=== PATIENT | female | born 1965 | race Caucasian/White ===

== ENCOUNTER 2021-12-30 19:37 | Observation (INO) ==
--- NOTE | 2021-12-30 20:20 | ED Triage Note ---
Date of Service December 30, 2021 History of Present Illness This patient was briefly evaluated while in triage. An abbreviated physical exam was performed. This patient is a 56-year-old Female who presents to the ED for evaluation of abdominal bloating and cramping. Patient recently diagnosed with a bulging disc in her back, was started on a muscle relaxer. She has been having abdominal bloating since December 06. She has tried laxatives and enemas. Physical Exam VITALS: Vitals are noted on the nurse's note and reviewed by myself. Vital signs stable. GENERAL: This is a 56-year-old female, in no acute distress, well-developed well-nourished. SKIN: The skin was without rashes. HEART: Regular rate and rhythm without murmurs gallops or rubs. LUNGS: Clear to auscultation bilaterally without wheezes, rales or rhonchi. ABDOMEN: Positive bowel sounds x 4. Soft, nontender to palpation. NEURO: Patient was alert and oriented to person place and time. Initial orders for labs and / or imaging were placed and patient was placed in the waiting area until a bed is available. Please see further documentation for the full ED course.
[2021-12-30 21:32] LABS: Appearance Urine Clear (Clear); Bacteria Urine Automated Negative (Negative); Bilirubin Urine Negative (Negative); Blood Urine Negative (Negative); Color Urine Yellow; Epithelial Cell Urine Auto >30 /lpf (0-5); Glucose Urine UA Negative (Negative); Ketones Urine Negative (Negative); Leukocyte Esterase Urine 1+ (Negative); Nitrite Urine Negative (Negative); Protein Urine Negative (Negative); RBC Urine Automated 0-4 /hpf (0-4); Specific Gravity Urine 1.019 (1.000-1.030); Urobilinogen Urine Negative (Negative)
[2021-12-30 21:34] LABS: Basophils # (auto) 0.05 K/uL (0-0.2); Basophils % (auto) 0.3 %; Eosinophils # (auto) 0.16 K/uL (0-0.50); Hematocrit (blood only) 41.2 % (34.1-44.9); Hemoglobin 13.8 g/dl (12.0-16.0); Immature Granulocytes % (auto) 1.3 %; Lymphocytes # (auto) 2.34 K/uL (1.2-3.4); Lymphocytes % (auto) 14.7 %; Mean Corpuscular Hemoglobin 30.7 pg (25.0-34.0); Mean Corpuscular Hgb Conc 33.5 g/dL (32.0-36.0); Mean Corpuscular Volume 91.8 fL (80.0-100.0); Mean Platelet Volume 10.6 fL (9.4-12.3); Monocytes # (auto) 0.67 K/uL (0.24-0.82); Monocytes % (auto) 4.2 %; Neutrophils # (auto) 12.53 K/uL (1.4-6.5); Neutrophils % (auto) 78.5 %; Platelet Count 368 K/uL (130-400); RDW Coefficient of Variation 13.9 % (11.5-14.5); RDW Standard Deviation 46.8 fL (36.4-46.3); Red Blood Count 4.49 M/uL (3.93-5.22); White Blood Count 15.95 K/ul (4.8-10.8)
[2021-12-30 21:55] LABS: Albumin Globulin Ratio 1.1 (0.9-2); Albumin Level 3.7 gm/dl (3.4-5.0); BUN Creatinine Ratio 23.8 (10-20); Bilirubin,Total 0.5 mg/dl (0.2-1.0); Calcium 8.8 mg/dl (8.5-10.1); Est GFR (African American) 89.4 ml/min; Est GFR (Non-African American) 77.2 ml/min; Globulin 3.3 gm/dl (2.5-4.0); Potassium 3.7 mmol/L (3.5-5.1)
[2021-12-31] MEDS ORDERED: fentaNYL citrate 100 MCG/2 ML VIAL IV PRN (00:30)
[2021-12-31] MEDS ORDERED: ACETAMINOPHEN 1,000 MG/100 ML VIAL IV STA (00:30)
--- NOTE | 2021-12-31 00:30 | Emergency Department Note ---
History of Present Illness General Chief complaint: Abdominal Pain Stated complaint: abd pain, back pain Time Seen by Provider: 12/31/21 00:09 Source: patient Mode of arrival: ambulatory Limitations: no limitations History of Present Illness Provider complaint: back pain, abdominal pain Onset (ago): week(s) 3 Maximum Pain Intensity: 10 This is a 56-year-old female presents emergency department due to concern for persistent back pain and now worsening abdominal pain. Patient states she began having back pain beginning of December. She underwent CT imaging which showed 2 bulging disc. She did have a follow-up MRI a week ago. She does not know the formal results. She has a scheduled appoint with Dr. Roberto but not for several more weeks. She states she has been using oxycodone at home in addition to a muscle relaxer, and steroids for inflammation. She states this is not helping her pain. She states now after taking all the pain medication she is very con stipated. She states she has not had a normal bowel movement in several weeks. She states she is passing very little amounts of gas. She states she does feel bloated and distended and has had intermittent nausea, no vomiting. She denies fevers or chills, saddle anesthesia, change in urine, pain or paresthesias into the lower extremities. did retrieve MRI disc from the car. THis was uploaded to PACS but we are awaiting copy of outside radiology report. Pt seen during a time of high acuity and national emergency pandemic while wearing PPE. Home Medications Medication Instructions Recorded Confirmed Type topiramate 50 mg tablet 50 mg PO BID 11/05/20 12/31/21 History lifitegrast 5 % eye drops in a 1 drp OPB BID 11/08/20 12/31/21 History dropperette (Xiidra) Vitamin D3 50 mcg PO DAILY 12/31/21 12/31/21 History cyclobenzaprine 10 mg tablet 10 mg PO HS PRN Spasms 12/31/21 12/31/21 History oxycodone-acetaminophen 5 mg-325 1 tab PO ONCE HS PRN pain 12/31/21 12/31/21 History mg tablet (Percocet) acetaminophen 325 mg tablet 650 mg PO Q8H PRN pain #90 tabs 01/01/22 Rx diclofenac sodium 1 % topical gel 4 g EXT QID #100 grams 01/01/22 Rx (Voltaren Arthritis Pain) polyethylene glycol 3350 17 gram 17 g PO DAILY PRN constipation #30 01/01/22 Rx oral powder packet (Miralax) ea sennosides 8.6 mg-docusate sodium 2 tab PO BID #120 tabs 01/01/22 Rx 50 mg tablet (Senokot-S) Allergies Allergy/AdvReac Type Severity Reaction Status Date / Time No Known Allergies Allergy Verified 12/19/21 00:47 Past Med/Surg History Medical History Migraine HX Surgical History H/O laparoscopy X 2 History of breast biopsy LEFT-BENIGN History of colonoscopy History of hysterectomy TOTAL Family History Grandmother (Maternal) Family history of diabetes mellitus Social History Smoking Status: Never smoker Second Hand Exposure: No; Do You Dip or Chew Tobacco: No; Tobacco Cessation Education Requested by Patient: No Hx Alcohol Use: Yes Alcohol type: beer Hx Substance Use: No Preferred Language: Danish Communication Ability: Effective Electrician Outside Required: No Beliefs That Will Affect Care: None Current Living Situation: Family current occupational status: employed current occupation: [employer] Other Information That Helps Us Care for You: No Feels Safe at Home: Yes Safety Concerns: Feels Safe At This Time Assistive Devices: Contacts and Glasses Review of Systems A total of 10 systems reviewed and were otherwise negative All systems reviewed & are unremarkable except as noted in HPI & below Physical Exam Vital Signs Vital Signs - 24 hr 12/30/21 20:13 12/31/21 01:22 12/31/21 01:22 Temperature 36.5 C Temperature Source Temporal Artery Scan Pulse Rate 114 H Pulse Rate [Apical] 93 H Pulse Rhythm [Apical] Regular Respiratory Rate 18 18 Respiratory Effort / Characteristics Non-Labored Respiratory Depth Normal Respiratory Pattern Regular Blood Pressure 140/83 Blood Pressure [Right Arm] 114/87 Blood Pressure Mean 102 Blood Pressure Mean [Right Arm] 96 Blood Pressure Position [Right Arm] Lying Pulse Oximetry 99 97 Oxygen Delivery Method Room Air Room Air Room Air Sepsis Recent Fever Within 48 Hours No Sepsis New/Unexplained Change in Mental Status N/A Sepsis Action Taken by Nursing No Action Required 12/31/21 02:19 12/31/21 02:19 12/31/21 04:39 Temperature Temperature Source Pulse Rate 93 H Pulse Rate [Apical] 86 Pulse Rhythm [Apical] Respiratory Rate 15 17 Respiratory Effort / Characteristics Non-Labored Spontaneous Respiratory Depth Normal Respiratory Pattern Blood Pressure 140/85 Blood Pressure [Right Arm] 153/86 H Blood Pressure Mean 103 Blood Pressure Mean [Right Arm] 108 Blood Pressure Position [Right Arm] Lying Pulse Oximetry 100 100 Oxygen Delivery Method Room Air Sepsis Recent Fever Within 48 Hours Sepsis New/Unexplained Change in Mental Status Sepsis Action Taken by Nursing GENERAL: alert, uncomfortable appearing, well nourished, moderate distress, non- toxic EYE EXAM: normal conjunctiva, PERRL and EOM's grossly intact OROPHARYNX: no exudate, no erythema, lips, buccal mucosa, and tongue normal and mucous membranes are moist NECK: supple, no nuchal rigidity, no adenopathy, non-tender LUNGS: Clear to auscultation. Normal chest wall mechanics, no w/r/r HEART: no murmurs, S1 normal and S2 normal ABDOMEN: abdomen soft, generalized discomfort with palpation, normo-active bowel sounds, no masses, no rebound or guarding. Dull to percussion. BACK: Back is symmetrical on inspection and there is no deformity, no midline tenderness, no CVA tenderness. Pain across lower lumbar spine b/l SKIN: no rashes and no bruising UPPER EXTREMITIES: upper extremities are grossly normal. FROM, nml pulses b/l. LOWER EXTREMITIES: No pitting edema. FROM, nml pulses b/l. NEURO EXAM: Normal sensorium, cranial nerves II-XII grossly intact, normal speech, no gross weakness of arms, no gross weakness of legs. Gross sensation intact. Course Administered Medications Discontinued Medications Acetaminophen (Acetaminophen 325 Mg Tab) 650 mg PO Q4H PRN PRN Reason: pain/fever Stop: 01/30/22 08:28 Last Admin: 12/31/21 18:56 Dose: 650 mg Documented By: CDV Diclofenac Sodium (Diclofenac Sod 1% Gel 100 Gm Tube) 4 gm EXT QID [facility]; Protocol Stop: 01/30/22 12:59 Last Admin: 01/01/22 13:04 Dose: Not Given Documented By: Admin: 01/01/22 09:15 Dose: 4 gm Documented By: Admin: 12/31/21 21:48 Dose: Not Given Documented By: Admin: 12/31/21 16:18 Dose: 4 gm Documented By: Admin: 12/31/21 12:36 Dose: Not Given Documented By: USHA Fentanyl Citrate (Fentanyl Citrate 100 Mcg/2 Ml Vial) 100 mcg IV Q15M PRN PRN Reason: Pain Stop: 01/14/22 00:29 Last Admin: 12/31/21 01:12 Dose: 100 mcg Documented By: SS Hydromorphone HCl (Hydromorphone Inj 1 Mg/Ml Syringe) 1 mg IV NOW STA Stop: 12/31/21 06:05 Last Admin: 12/31/21 06:50 Dose: Not Given Documented By: JOANNA Acetaminophen (Ofirmev) 1,000 mg in 100 mls @ 400 mls/hr IV NOW STA Stop: 12/31/21 00:44 Last Infusion: 12/31/21 01:37 Dose: 0 mls/hr Documented By: Admin: 12/31/21 01:12 Dose: 400 mls/hr Documented By: SS Sodium Chloride (Nss 1000ml) 1,000 mls @ 250 mls/hr IV .Q4H LIU Stop: 01/30/22 00:29 Last Infusion: 12/31/21 07:33 Dose: 0 mls/hr Documented By: Infusion: 12/31/21 06:42 Dose: 0 mls/hr Documented By: Admin: 12/31/21 05:16 Dose: 250 mls/hr Documented By: Infusion: 12/31/21 05:16 Dose: 250 mls/hr Documented By: Admin: 12/31/21 01:19 Dose: 250 mls/hr Documented By: SS Lactated Ringer's (Lr) 1,000 mls @ 75 mls/hr IV .[id number] ONE Stop: 12/31/21 19:49 Last Infusion: 12/31/21 20:43 Dose: 0 mls/hr Documented By: Admin: 12/31/21 06:43 Dose: 75 mls/hr Documented By: JOANNA Ioversol (Optiray 320 100ml) 100 ml IV ONCE ONE Stop: 12/31/21 03:56 Last Admin: 12/31/21 03:56 Dose: 93 ml Documented By: VALENTIN Ketorolac Tromethamine (Ketorolac Tromethamine 15 Mg/Ml Vial) 10 mg IV NOW ONE Stop: 12/31/21 02:02 Last Admin: 12/31/21 02:15 Dose: 10 mg Documented By: JASWINDER Ketorolac Tromethamine (Ketorolac Tromethamine 15 Mg/Ml Vial) 15 mg IV NOW ONE Stop: 12/31/21 06:55 Last Admin: 12/31/21 07:30 Dose: 15 mg Documented By: DENYS Lactulose (Lactulose Syrup 20 Gm/30 Ml Udc) 30 gm PO NOW STA Stop: 12/31/21 06:31 Last Admin: 12/31/21 07:00 Dose: 30 gm Documented By: JOANNA Lidocaine (Lidocaine 5% 1 Patch) 1 patch TD QAM [facility] Stop: 01/30/22 10:29 Last Admin: 01/01/22 09:15 Dose: 1 patch Documented By: Admin: 12/31/21 10:41 Dose: 1 patch Documented By: USHA Lidocaine (Lidocaine 5% 1 Patch) Confirm Administered Dose 1 patch TD .STK-MED ONE Stop: 12/31/21 10:15 Last Admin: 12/31/21 10:15 Dose: 1 patch Documented By: MO Methylnaltrexone [place] (Methylnaltrexone [place] 12 Mg/0.6 Ml Vial) 12 mg SQ NOW STA Stop: 12/31/21 06:05 Last Admin: 12/31/21 07:30 Dose: 12 mg Documented By: DENYS Miscellaneous (Remove Lidoderm Patch) 1 each N/A DAILY@2100 [facility] Stop: 01/30/22 20:59 Last Admin: 12/31/21 21:48 Dose: 1 each Documented By: MERY Morphine Sulfate (Morphine Sulfate 4 Mg/Ml 1 Ml Carp\Vial) 4 mg IV NOW STA Stop: 12/31/21 02:02 Last Admin: 12/31/21 02:16 Dose: 4 mg Documented By: JASWINDER Morphine Sulfate (Morphine Sulfate 4 Mg/Ml 1 Ml Carp\Vial) 4 mg IV NOW STA Stop: 12/31/21 04:31 Last Admin: 12/31/21 04:35 Dose: 4 mg Documented By: JOANNA Oxycodone HCl (Oxycodone Hcl Ir 5 Mg Tab (Immediate Release)) 5 mg PO QID PRN PRN Reason: Pain Stop: 01/14/22 08:28 Last Admin: 12/31/21 22:15 Dose: 5 mg Documented By: Admin: 12/31/21 14:46 Dose: 5 mg Documented By: Admin: 12/31/21 08:40 Dose: 5 mg Documented By: MO Polyethylene Glycol (Polyethylene (Miralax) 17 Gm Pack) 17 gm PO NOW STA Stop: 12/31/21 07:00 Last Admin: 12/31/21 10:41 Dose: 17 gm Documented By: USHA Senna/Docusate Sodium (Docusate Sodium/Senna 50/8.6mg Tab) 1 tab PO NOW STA Stop: 12/31/21 06:30 Last Admin: 12/31/21 06:59 Dose: 1 tab Documented By: JOANNA Senna/Docusate Sodium (Docusate Sodium/Senna 50/8.6mg Tab) 2 tab PO BID LIU Stop: 01/30/22 20:59 Last Admin: 01/01/22 09:15 Dose: 2 tab Documented By: Admin: 12/31/21 21:48 Dose: 2 tab Documented By: MERY Tizanidine HCl (Tizanidine Hcl 4 Mg Tablet) 2 mg PO TID PRN PRN Reason: spasm Stop: 01/30/22 08:28 Last Admin: 01/01/22 04:17 Dose: 2 mg Documented By: Admin: 12/31/21 13:42 Dose: 2 mg Documented By: DENYS Topiramate (Topiramate 50 Mg Tab) 50 mg PO BID LIU Stop: 01/30/22 08:59 Last Admin: 01/01/22 09:15 Dose: 50 mg Documented By: Admin: 12/31/21 21:48 Dose: 50 mg Documented By: Admin: 12/31/21 10:41 Dose: 50 mg Documented By: USHA Medical Decision Making Differential Diagnosis Differential diagnoses includes but is not limited to gastritis, peptic ulcer disease, GERD, gallbladder disease, pancreatitis, small bowel obstruction, acute coronary syndrome, pericarditis, ischemic bowel, irritable bowel disease, irritable bowel syndrome, appendicitis, diverticulitis, malignancy, hernia, urinary tract infection, torsion, [/ectopic (if female)], perforation, trauma, infectious. Medical Records Attestation: I reviewed the patient's medical records. Home Medications Current Medication List: was personally reviewed by me Laboratory Data Attestation: I reviewed the patient's lab results. Result diagrams: 01/01/22 06:39 01/01/22 06:39 Lab Results 12/30/21 12/30/21 12/30/21 Range/Units 21:06 21:06 21:06 WBC 15.95 H (4.8-10.8) K/ul RBC 4.49 (3.93-5.22) M/uL Hgb 13.8 (12.0-16.0) g/dl Hct 41.2 (34.1-44.9) % MCV 91.8 (80.0-100.0) fL MCH 30.7 (25.0-34.0) pg MCHC 33.5 (32.0-36.0) g/dL RDW Std Deviation 46.8 H (36.4-46.3) fL RDW Coeff of Calvin 13.9 (11.5-14.5) % Plt Count 368 (130-400) K/uL MPV 10.6 (9.4-12.3) fL Immature Gran % (Auto) 1.3 % Neut % (Auto) 78.5 % Lymph % (Auto) 14.7 % [place] % (Auto) 4.2 % Eos % (Auto) 1.0 % Baso % (Auto) 0.3 % Neut # (Auto) 12.53 H (1.4-6.5) K/uL Lymph # (Auto) 2.34 (1.2-3.4) K/uL [place] # (Auto) 0.67 (0.24-0.82) K/uL Eos # (Auto) 0.16 (0-0.50) K/uL Baso # (Auto) 0.05 (0-0.2) K/uL Immature Gran # (Auto) 0.20 H (0.00-0.02) K/uL Sodium 134 L (136-145) mmol/L Potassium 3.7 (3.5-5.1) mmol/L Chloride 101 (98-107) mmol/L Carbon Dioxide 26 (21-32) mmol/L Anion Gap 7 (3-11) BUN 20 (6-23) mg/dl Creatinine 0.84 (0.6-1.2) mg/dl Est Cr Clr Drug Dosing 66.0 ml/min Est GFR ( Amer) 89.4 ml/min Est GFR (Non-Af Amer) 77.2 ml/min BUN/Creatinine Ratio 23.8 H (10-20) Glucose 116 H (70-99(Fasting)) mg/dl Calcium 8.8 (8.5-10.1) mg/dl Magnesium 2.5 H (1.7-2.4) mg/dl Total Bilirubin 0.5 (0.2-1.0) mg/dl AST 14 (13-39) U/L ALT 19 (7-52) U/L Alkaline Phosphatase 64 (34-104) U/L Total Protein 7.0 (6.0-8.3) gm/dl Albumin 3.7 (3.4-5.0) gm/dl Globulin 3.3 (2.5-4.0) gm/dl Albumin/Globulin Ratio 1.1 (0.9-2) Lipase 22 (11-82) U/L Procalcitonin 0.30 (0-0.5) ng/ml Urine Color Urine Appearance (Clear) Urine pH (4.5-7.5) Ur Specific [place] (1.000-1.030) Urine Protein (Negative) Urine Glucose (UA) (Negative) Urine Ketones (Negative) Urine Blood (Negative) Urine Nitrite (Negative) Urine Bilirubin (Negative) Urine Urobilinogen (Negative) Ur Leukocyte Esterase (Negative) Urine WBC (Auto) (0-5) /hpf Urine RBC (Auto) (0-4) /hpf U Hyaline Cast (Auto) (0-5) /lpf U Epithel Cells (Auto) (0-5) /lpf Urine Bacteria (Auto) (Negative) SARS-CoV-2, RNA, NAAT (NEGATIVE) 12/30/21 12/31/21 Range/Units 21:12 06:36 WBC (4.8-10.8) K/ul RBC (3.93-5.22) M/uL Hgb (12.0-16.0) g/dl Hct (34.1-44.9) % MCV (80.0-100.0) fL MCH (25.0-34.0) pg MCHC (32.0-36.0) g/dL RDW Std Deviation (36.4-46.3) fL RDW Coeff of Calvin (11.5-14.5) % Plt Count (130-400) K/uL MPV (9.4-12.3) fL Immature Gran % (Auto) % Neut % (Auto) % Lymph % (Auto) % [place] % (Auto) % Eos % (Auto) % Baso % (Auto) % Neut # (Auto) (1.4-6.5) K/uL Lymph # (Auto) (1.2-3.4) K/uL [place] # (Auto) (0.24-0.82) K/uL Eos # (Auto) (0-0.50) K/uL Baso # (Auto) (0-0.2) K/uL Immature Gran # (Auto) (0.00-0.02) K/uL Sodium (136-145) mmol/L Potassium (3.5-5.1) mmol/L Chloride (98-107) mmol/L Carbon Dioxide (21-32) mmol/L Anion Gap (3-11) BUN (6-23) mg/dl Creatinine (0.6-1.2) mg/dl Est Cr Clr Drug Dosing ml/min Est GFR ( Amer) ml/min Est GFR (Non-Af Amer) ml/min BUN/Creatinine Ratio (10-20) Glucose (70-99(Fasting)) mg/dl Calcium (8.5-10.1) mg/dl Magnesium (1.7-2.4) mg/dl Total Bilirubin (0.2-1.0) mg/dl AST (13-39) U/L ALT (7-52) U/L Alkaline Phosphatase (34-104) U/L Total Protein (6.0-8.3) gm/dl Albumin (3.4-5.0) gm/dl Globulin (2.5-4.0) gm/dl Albumin/Globulin Ratio (0.9-2) Lipase (11-82) U/L Procalcitonin (0-0.5) ng/ml Urine Color Yellow Urine Appearance Clear (Clear) Urine pH 6.0 (4.5-7.5) Ur Specific [place] 1.019 (1.000-1.030) Urine Protein Negative (Negative) Urine Glucose (UA) Negative (Negative) Urine Ketones Negative (Negative) Urine Blood Negative (Negative) Urine Nitrite Negative (Negative) Urine Bilirubin Negative (Negative) Urine Urobilinogen Negative (Negative) Ur Leukocyte Esterase 1+ H (Negative) Urine WBC (Auto) 5-10 H (0-5) /hpf Urine RBC (Auto) 0-4 (0-4) /hpf U Hyaline Cast (Auto) 1-5 (0-5) /lpf U Epithel Cells (Auto) >30 H (0-5) /lpf Urine Bacteria (Auto) Negative (Negative) SARS-CoV-2, RNA, NAAT NEGATIVE (NEGATIVE) Imaging Data Radiologist's Impression: CT abdomen pelvis with contrast: Dilated ascending colon measuring up to 6.2 cm with prominent cecum measuring up to 8.8 cm. No evidence of transition point. Bowel obstruction is less likely. Oral contrast reaches the distal ileum. Normal appendix. No other acute findings. Radiologist: Ayush Carlton MD MDM Narrative An order was placed for continuous cardiac monitoring. The monitor shows a rate of __90__ with __normal sinus_ rhythm. Patient presents due to worsening abdominal pain and constipation in the setting of ongoing back pain no controlled with home pain meds. Patient with recent outpt MRI and states has 2 bulging discs. Labs sent and CT ordered due to worsening pain. Patient was seen on a day of high volume and acuity and nursing staff started protocol orders prior to my evaluation. Colonic dilation and constipation noted on KUB. Patient required multiple doses of pain medication. Relastor added as patient had tried multiple OTC meds already and there is no mag citrate in the hospital. Due to persistent symptoms, case discussed with the hospitalist for additional evaluation and treatment. Impression & Plan Abdominal pain, Constipation, Back pain Discharge Plan Visit Data Chief Complaint: Abdominal Pain Stated Complaint: abd pain, back pain ED Provider: Tennille Treviño Discharge Problem: Abdominal pain, Constipation, Back pain Patient Disposition: Admitted As Inpatient Discharge Instructions Interventions: ED Discharge Assessment Last Done: 12/31/21 08:30
[2021-12-31] MEDS: SODIUM CHLORIDE 0.9% 1000ML 1,000 ML IV SCH ×2 (01:19→05:16)
[2021-12-31] MEDS ORDERED: MoRPHine SULFATE 4 MG/ML 1 ML CARP\\VIAL IV STA ×2 (02:01→04:30)
[2021-12-31] MEDS ORDERED: KETOROLAC TROMETHAMINE 15 MG/ML VIAL IV ONE ×2 (02:01→06:54)
[2021-12-31] MEDS ORDERED: OPTIRAY 320 100ml IV ONE (03:55)
[2021-12-31] MEDS ORDERED: HYDROmorphone INJ 1 MG/ML SYRINGE IV STA (06:04)
[2021-12-31] MEDS ORDERED: METHYLNALTREXONE BROMIDE 12 MG/0.6 ML VIAL SQ STA (06:04)
[2021-12-31] MEDS ORDERED: DOCUSATE SODIUM/SENNA 50/8.6MG TAB PO STA (06:29)
--- NOTE | 2021-12-31 06:29 | History & Physical Report ---
Date of Service December 31, 2021 Assessment & Plan (1) Abdominal pain: Plan: Secondary to narcotic induced constipation Intractable low back pain the last 3 weeks Patient nontoxic. Migraine stable on Topamax Steroid-induced hyperglycemia OBS GMF Bowel regimen Judicious narcotic use given narcotic induced constipation. Explained to patient adverse effects of narcotics on bowel motility. GI consult if no improvement with Relistor and bowel regimen given at the ER Orthopedic spine consult Re: Intractable back pain PT eval DVT prophylaxis. SCDs Full code Text document was generated using [employer] voice recognition software. It may contain grammatical or spelling errors. Kindly contact undersigned for clarification of any documentation item in question. History of Present Illness Chief Complaint: Abdominal bloating/constipation, uncontrolled back pain Primary Care Provider: Keyonna Mccurdy DO History obtained from patient and records. Medical history significant for migraine, anxiety disorder. 3 weeks history of low back pain without radiation to the legs. No leg weakness/bowel/urinary incontinence. No fever, no chills. No recollection of recent trauma. 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 No response to home narcotics, Lidoderm patch trial, steroid course, and outpatient PT Multiple ER visits in the last few weeks for back pain ([facility] and [facility] Outpatient Orthopedics spine evaluation last 12/22/2021. MRI recommended for patient's lumbar pain. Patient confined at [facility] last week for intractable back pain symptoms. Lumbar MRI negative for acute fracture/traumatic subluxation. No evidence of pathologic assessment. Mild disc degenerative changes at L3-4 through L5-S1 levels. Mild foraminal narrowing at the L4-L5 and L5-S1 levels. No disc protrusion or canal stenosis identified. Worsening achy lower abdominal discomfort and constipation symptoms in the last week. Patient claims to taking maximum of 2 tablets of Percocet per day. Some nausea, no emesis. No chest pain, no SOB. No fever, no chills. Last BM was about 5 days ago with an aide of an enema. Patient consulted ER for worsening symptoms. Relistor given at the ER for narcotic induced constipation. Medical History as above Surgical History : Breast biopsy/lumpectomy, cholecystectomy, KAMILA/BSO Family History : Breast cancer, COPD, DM Personal/Social history : Non-smoker, no EtOH intake, hairstylist/[employer] Allergies Allergy/AdvReac Type Severity Reaction Status Date / Time No Known Allergies Allergy Verified 12/19/21 00:47 Home Medications Medication Instructions Recorded Confirmed Type topiramate 50 mg tablet 50 mg PO BID 11/05/20 12/19/21 History lifitegrast 5 % eye drops in a 1 drp OPB BID 11/08/20 12/19/21 History dropperette (Xiidra) Vitamin D3 50 mcg PO DAILY 12/31/21 12/31/21 History cyclobenzaprine 10 mg tablet 10 mg PO HS PRN Spasms 12/31/21 12/31/21 History oxycodone-acetaminophen 5 mg-325 1 tab PO Q6H PRN pain 12/31/21 History mg tablet (Percocet) Past Med/Surg History Medical History Migraine HX Surgical History H/O laparoscopy X 2 History of breast biopsy LEFT-BENIGN History of colonoscopy History of hysterectomy TOTAL Family History Grandmother (Maternal) Family history of diabetes mellitus Social History Smoking Status: Never smoker Second Hand Exposure: No; Hx Alcohol Use: Yes Alcohol type: beer and wine Hx Substance Use: No Preferred Language: Setswana Communication Ability: Effective Direct Sales Consultant Required: No Beliefs That Will Affect Care: None Current Living Situation: Spouse current occupational status: employed current occupation: [employer] Feels Safe at Home: Yes Assistive Devices: Contacts and Glasses Review of Systems Review of Systems: As per HPI, all other systems reviewed and negative Physical Exam Physical Exam: GENERAL: uncomfortable, anxious, no respiratory distress SKIN: Normal color, warm HEENT: [place] palpebral conjunctivae, no ptosis, dry buccal mucosa NECK : Supple, no tenderness CHEST : CTA, no tenderness HEART : RRR, no obvious murmurs ABDOMEN: distention, right-sided abdominal tenderness BACK : Low back tenderness, negative straight leg raise test EXTREMITIES : No LE swelling/tenderness, no other conspicuous deformities noted NEUROLOGIC : Coherent, no facial asymmetry, no other gross focality Results & Data Results & Data ([facility]) Vital Signs (Past 12 Hours) Vital Signs Temp Pulse Pulse Resp BP BP Pulse Ox 12/31/21 04:39 86 17 153/86 H 100 12/31/21 02:19 93 H 15 100 12/31/21 02:19 140/85 12/31/21 01:22 12/31/21 01:22 93 H 18 114/87 97 12/30/21 20:13 36.5 C 114 H 18 140/83 99 O2 Del Method 12/31/21 04:39 Room Air 12/31/21 02:19 12/31/21 02:19 12/31/21 01:22 Room Air 12/31/21 01:22 Room Air 12/30/21 20:13 Room Air Laboratory Results Laboratory Results WBC 15.95 K/ul (4.8-10.8) H 12/30/21 21:06 RBC 4.49 M/uL (3.93-5.22) 12/30/21 21:06 Hgb 13.8 g/dl (12.0-16.0) 12/30/21 21:06 Hct 41.2 % (34.1-44.9) 12/30/21 21:06 MCV 91.8 fL (80.0-100.0) 12/30/21 21:06 MCH 30.7 pg (25.0-34.0) 12/30/21 21:06 MCHC 33.5 g/dL (32.0-36.0) 12/30/21 21:06 RDW Std Deviation 46.8 fL (36.4-46.3) H 12/30/21 21:06 RDW Coeff of Calvin 13.9 % (11.5-14.5) 12/30/21 21:06 Plt Count 368 K/uL (130-400) 12/30/21 21:06 MPV 10.6 fL (9.4-12.3) 12/30/21 21:06 Immature Gran % (Auto) 1.3 % 12/30/21 21:06 Neut % (Auto) 78.5 % 12/30/21 21:06 Lymph % (Auto) 14.7 % 12/30/21 21:06 [place] % (Auto) 4.2 % 12/30/21 21:06 Eos % (Auto) 1.0 % 12/30/21 21:06 Baso % (Auto) 0.3 % 12/30/21 21:06 Neut # (Auto) 12.53 K/uL (1.4-6.5) H 12/30/21 21:06 Lymph # (Auto) 2.34 K/uL (1.2-3.4) 12/30/21 21:06 [place] # (Auto) 0.67 K/uL (0.24-0.82) 12/30/21 21:06 Eos # (Auto) 0.16 K/uL (0-0.50) 12/30/21 21:06 Baso # (Auto) 0.05 K/uL (0-0.2) 12/30/21 21:06 Immature Gran # (Auto) 0.20 K/uL (0.00-0.02) H 12/30/21 21:06 Sodium 134 mmol/L (136-145) L 12/30/21 21:06 Potassium 3.7 mmol/L (3.5-5.1) 12/30/21 21:06 Chloride 101 mmol/L (98-107) 12/30/21 21:06 Carbon Dioxide 26 mmol/L (21-32) 12/30/21 21:06 Anion Gap 7 (3-11) 12/30/21 21:06 BUN 20 mg/dl (6-23) 12/30/21 21:06 Creatinine 0.84 mg/dl (0.6-1.2) 12/30/21 21:06 Est Cr Clr Drug Dosing 66.0 ml/min 12/30/21 21:06 Est GFR ( Amer) 89.4 ml/min 12/30/21 21:06 Est GFR (Non-Af Amer) 77.2 ml/min 12/30/21 21:06 BUN/Creatinine Ratio 23.8 (10-20) H 12/30/21 21:06 Glucose 116 mg/dl (70-99(Fasting)) H 12/30/21 21:06 Calcium 8.8 mg/dl (8.5-10.1) 12/30/21 21:06 Total Bilirubin 0.5 mg/dl (0.2-1.0) 12/30/21 21:06 AST 14 U/L (13-39) 12/30/21 21:06 ALT 19 U/L (7-52) 12/30/21 21:06 Alkaline Phosphatase 64 U/L (34-104) 12/30/21 21:06 Total Protein 7.0 gm/dl (6.0-8.3) 12/30/21 21:06 Albumin 3.7 gm/dl (3.4-5.0) 12/30/21 21:06 Globulin 3.3 gm/dl (2.5-4.0) 12/30/21 21:06 Albumin/Globulin Ratio 1.1 (0.9-2) 12/30/21 21:06 Lipase 22 U/L (11-82) 12/30/21 21:06 Urine Color Yellow 12/30/21 21:12 Urine Appearance Clear (Clear) 12/30/21 21:12 Urine pH 6.0 (4.5-7.5) 12/30/21 21:12 Ur Specific [place] 1.019 (1.000-1.030) 12/30/21 21:12 Urine Protein Negative (Negative) 12/30/21 21:12 Urine Glucose (UA) Negative (Negative) 12/30/21 21:12 Urine Ketones Negative (Negative) 12/30/21 21:12 Urine Blood Negative (Negative) 12/30/21 21:12 Urine Nitrite Negative (Negative) 12/30/21 21:12 Urine Bilirubin Negative (Negative) 12/30/21 21:12 Urine Urobilinogen Negative (Negative) 12/30/21 21:12 Ur Leukocyte Esterase 1+ (Negative) H 12/30/21 21:12 Urine WBC (Auto) 5-10 /hpf (0-5) H 12/30/21 21:12 Urine RBC (Auto) 0-4 /hpf (0-4) 12/30/21 21:12 U Hyaline Cast (Auto) 1-5 /lpf (0-5) 12/30/21 21:12 U Epithel Cells (Auto) >30 /lpf (0-5) H 12/30/21 21:12 Urine Bacteria (Auto) Negative (Negative) 12/30/21 21:[address] abdomen pelvis initial read: Dilated ascending colon measuring up to 6.2 cmwith prominent cecummeasuring up to 8.8 cm. No evidence of transition point. Bowel obstruction is less likely. Oral contrast reaches the distal ileum. Normal appendix. No other acute findings. (1) Abdominal pain Abdominal location: lower abdomen, unspecified Qualified Code(s): R10.30 - Lower abdominal pain, unspecified
[2021-12-31] MEDS ORDERED: LACTULOSE SYRUP 20 GM/30 ML UDC PO STA (06:30)
[2021-12-31] MEDS ORDERED: LACTATED RINGER'S 1,000 ML IV ONE (06:30)
[2021-12-31 06:49] LABS: Magnesium 2.5 mg/dl (1.7-2.4)
[2021-12-31] MEDS ORDERED: POLYETHYLENE (MIRALAX) 17 GM PACK PO STA (06:59)
--- NOTE | 2021-12-31 07:43 | CT Scan Report ---
ABDOMEN AND PELVIS CT WITH IV AND ORAL CONTRAST CT DOSE: 303.75 mGy.cm HISTORY: Lower abdominal pain. Nausea. TECHNIQUE: Multiaxial CT images of the abdomen and pelvis were performed following the use of intrave nous and oral contrast. A dose lowering technique was utilized adhering to the principles of ALARA. COMPARISON STUDY: Abdomen and pelvis CT 12/19/2021. FINDINGS: The lung bases are clear. No pneumoperitoneum. No pneumatosis. No fractures within the visu alized osseous structures. Prior cholecystectomy. The liver, spleen, adrenal glands, pancreas, and ki dneys are unremarkable. No hydronephrosis. Subcentimeter retroperitoneal lymph nodes do not meet CT c riteria for pathologic involvement. The main portal vein is patent. Normal caliber abdominal aorta. T he bladder is unremarkable. Prior hysterectomy. No pelvic lymphadenopathy. Distended colon containing a large amount of stool is most pronounced within the proximal colon/cecum which measures up to 7.3 cm in diameter. However, no transition point to suggest a bowel obstruction. Normal appendix. No ana l wall thickening. Trace pelvic free fluid, unchanged. IMPRESSION: 1. Distended colon containing a large amount of stool most pronounced within the proximal colon/cecum . This likely represents constipation. 2. No evidence for bowel obstruction. 3. Normal appendix. 4. Prior cholecystectomy and hysterectomy. ACT 112: Negative or not required by law. Electronically signed by: Juan Flowers M.D. 12/31/2021 7:42 AM
--- NOTE | 2021-12-31 08:14 | XRay Report ---
KUB HISTORY: Acute generalized abdominal pain with constipation Constipation COMPARISON: CT abdomen and pelvis 12/31/2021. FINDINGS: Nonobstructive bowel gas pattern. Extensive colonic fecal retention. No renal calculi. No ureteral calculi. No pneumoperitoneum or pneumatosis. No fracture. IMPRESSION: Extensive colonic fecal retention. ACT 112: Negative or not required by law. The above report was generated using voice recognition software. It may contain grammatical, syntax o r spelling errors. Electronically signed by: Wilbert Rico M.D. 12/31/2021 8:13 AM
[2021-12-31] MEDS ORDERED: PROMETHAZINE HCL 12.5 MG in SODIUM CHLORIDE 0.9% 50 ML IV PRN (08:29)
[2021-12-31] MEDS ORDERED: ACETAMINOPHEN 325 MG TAB PO PRN (08:29)
[2021-12-31] MEDS ORDERED: hydrOXYzine HCl 10 MG TAB PO PRN (08:29)
[2021-12-31] MEDS ORDERED: POLYETHYLENE (MIRALAX) 17 GM PACK PO PRN (08:29)
[2021-12-31] MEDS ORDERED: ARTIFICIAL TEARS OPB PRN (08:30)
[2021-12-31] MEDS: oxyCODONE HCL IR 5 MG TAB (IMMEDIATE RELEASE) PO PRN ×3 (08:40→22:15)
[2021-12-31 08:50] LABS: Basophils # (auto) 0.06 K/uL (0-0.2); Basophils % (auto) 0.5 %; Eosinophils # (auto) 0.19 K/uL (0-0.50); Eosinophils % (auto) 1.4 %; Hematocrit (blood only) 39.5 % (34.1-44.9); Hemoglobin 12.7 g/dl (12.0-16.0); Immature Granulocytes # (auto) 0.19 K/uL (0.00-0.02); Immature Granulocytes % (auto) 1.4 %; Lymphocytes # (auto) 1.64 K/uL (1.2-3.4); Lymphocytes % (auto) 12.4 %; Mean Corpuscular Hgb Conc 32.2 g/dL (32.0-36.0); Mean Corpuscular Volume 93.4 fL (80.0-100.0); Mean Platelet Volume 10.2 fL (9.4-12.3); Monocytes # (auto) 0.52 K/uL (0.24-0.82); Monocytes % (auto) 3.9 %; Neutrophils # (auto) 10.65 K/uL (1.4-6.5); Neutrophils % (auto) 80.4 %; Platelet Count 336 K/uL (130-400); RDW Coefficient of Variation 13.9 % (11.5-14.5); RDW Standard Deviation 46.8 fL (36.4-46.3); Red Blood Count 4.23 M/uL (3.93-5.22); White Blood Count 13.25 K/ul (4.8-10.8)
[2021-12-31 09:12] LABS: BUN Creatinine Ratio 24.7 (10-20); Calcium 8.6 mg/dl (8.5-10.1); Creatinine Clr Calc Pharmacy 75.9 ml/min; Est GFR (Non-African American) 91.4 ml/min; Potassium 3.6 mmol/L (3.5-5.1)
[2021-12-31] MEDS ORDERED: LIDOCAINE 5% 1 PATCH TD ONE (10:14)
[2021-12-31] MEDS: LIDOCAINE 5% 1 PATCH TD SCH (10:41)
[2021-12-31] MEDS: TOPIRAMATE 50 MG TAB PO SCH ×2 (10:41→21:48)
[2021-12-31] MEDS: DICLOFENAC SOD 1% GEL 100 GM TUBE EXT SCH ×3 (12:36→21:48)
[2021-12-31] MEDS: tiZANidine HCL 4 MG TABLET PO PRN (13:42)
[2021-12-31] MEDS ORDERED: ALUMINUM/MAGNESIUM SUSP 30 ML UDC PO PRN (16:56)
--- NOTE | 2021-12-31 17:13 | Hospitalist Progress Note ---
Date of Service December 31, 2021 Assessment & Plan (1) Abdominal pain: Plan 56-year-old lady with PMH of migraine and anxiety disorder presented to our ED 12/31 with complaint of 3 weeks history of low back pain without radiation to lower extremity/without bowel or bladder incontinence leading to excess use of narcotic pain meds and multiple ER visits in the last few weeks. Patient denies fever. Last BM was about 5 days ago [employer]. Patient is status post Relistor in the ED. She is being managed for the following: Intractable low back pain Steroid induced constipation Patient presenting with 3 weeks history of low back pain with multiple visits to ED and use of narcotic pain meds/Lidoderm patch/steroid course/outpatient physical therapy without success. Patient complains of not moving bowels for 5 days prior to arrival, had used Fleet enema at home, status post Relistor at ED on presentation. Admitting CTAP with findings suggestive of constipation/fecal retention. Pain control with heat, Voltaren gel, ketorolac, judicious use of narcotics, lid ocaine patch. Continue with bowel regimen scheduled and as needed. Patient reports bowel movement today and some relief with belly pain and low back pain. Orthospine consulted, await recommendation. Advance diet as tolerated, can DC IV fluids once patient tolerating diet. PT/OT eval when able. Mild hyponatremia: Likely secondary to decreased p.o. intake due to constipati on/belly pain, expect to improve with improving p.o. intake. Other chronic medical conditions: Anxiety, migraine --> resume Topamax. As needed hydroxyzine. DVT prophylaxis: SCDs Full code Admission and Anticipated Discharge Date Admission Date: December 31, 2021 Subjective Patient seen and examined at bedside as a follow-up of low back pain and steroid induced constipation associated with abdominal pain. Patient was standing up by the side of bed, on room air, just had a bowel movement, reports some relief but still with belly pain and low back pain, low back pain especially aggravated when lying on bed, patient denies any new acute events overnight, reports eating a little bit, denies any radicular pain to lower extremities, denies loss of control of her bowel or bladder, denies head ache or dizziness or sore throat or cough or fever lately. Reports low back pain better controlled Physical Exam Physical Exam: GENERAL: Alert and oriented x3. NAD, on RA. HEENT: No pallor, no icterus. Pupils equal, round and reactive to light. Oral mucosa moist. NECK: No JVD, no neck masses. HEART: S1 and S2 heard. Regular rate and rhythm. No murmur, no gallop. RESPIRATORY SYSTEM: Normal AP diameter. No accessory muscle use. No wheezing, no crackles. ABDOMEN: Soft, bowel sounds present, nontender, no distention. CENTRAL NERVOUS SYSTEM: No facial droop. Speech is clear. Obeys simple commands. Moves extremities. EXTREMITIES: No edema, no erythema seen. No vertebral line tenderness. Results & Data Results & Data ([facility]) Vital Signs (Past 12 Hours) Vital Signs Pulse Resp BP Pulse Ox 12/31/21 08:00 78 18 132/68 98 12/31/21 08:38 113 H 18 164/100 H 97 (1) Abdominal pain Abdominal location: lower abdomen, unspecified Qualified Code(s): R10.30 - Lower abdominal pain, unspecified
[2021-12-31] MEDS ORDERED: DOCUSATE SODIUM/SENNA 50/8.6MG TAB PO SCH (21:00)
[2021-12-31] MEDS: DOCUSATE SODIUM/SENNA 50/8.6MG TAB PO SCH (21:48)
[2022-01-01] MEDS: tiZANidine HCL 4 MG TABLET PO PRN (04:17)
[2022-01-01 07:18] LABS: Hematocrit (blood only) 34.2 % (34.1-44.9); Hemoglobin 11.4 g/dl (12.0-16.0); Mean Corpuscular Hemoglobin 30.2 pg (25.0-34.0); Mean Corpuscular Hgb Conc 33.3 g/dL (32.0-36.0); Mean Corpuscular Volume 90.5 fL (80.0-100.0); Mean Platelet Volume 10.5 fL (9.4-12.3); Platelet Count 290 K/uL (130-400); RDW Coefficient of Variation 13.5 % (11.5-14.5); RDW Standard Deviation 45.1 fL (36.4-46.3); Red Blood Count 3.78 M/uL (3.93-5.22); White Blood Count 12.36 K/ul (4.8-10.8)
[2022-01-01 07:51] LABS: BUN Creatinine Ratio 15.3 (10-20); Calcium 8.4 mg/dl (8.5-10.1); Creatinine Clr Calc Pharmacy 95.6 ml/min; Est GFR (African American) 117.9 ml/min; Est GFR (Non-African American) 101.7 ml/min; Phosphorus 3.1 mg/dl (2.5-4.9); Potassium 3.9 mmol/L (3.5-5.1)
--- NOTE | 2022-01-01 08:52 | Orthopedic Consultation ---
Date of Consultation January 01, 2022 Assessment & Plan (1) Lumbar facet arthropathy: Assessment acute back pain. Plan at this time CAT scan is available for review demonstrates evidence of significant facet hypertrophy arthritic type change at L5-S1. Perhaps this is the etiology of her symptoms. I see no evidence for any acute surgical invention. Recommend that she follow-up with our office upon discharge for evaluation to review MRI with the patient and consider a course of interventional pain management. History of Present Illness Reason for Consultation: Back pain Attending Physician: Jamaal Mann MD History of Present Illness This a very pleasant 56-year-old female states she has had back pain since roughly 06 December. She denies any specific trauma fall or event. She does work full-time and believes that she perhaps strained herself. She denies any radicular pain denies any leg weakness. States pain is quite incapacitating with spasms. Allergies Allergy/AdvReac Type Severity Reaction Status Date / Time No Known Allergies Allergy Verified 12/19/21 00:47 Home Medications Medication Instructions Recorded Confirmed Type topiramate 50 mg tablet 50 mg PO BID 11/05/20 12/31/21 History lifitegrast 5 % eye drops in a 1 drp OPB BID 11/08/20 12/31/21 History dropperette (Xiidra) Vitamin D3 50 mcg PO DAILY 12/31/21 12/31/21 History cyclobenzaprine 10 mg tablet 10 mg PO HS PRN Spasms 12/31/21 12/31/21 History oxycodone-acetaminophen 5 mg-325 1 tab PO ONCE HS PRN pain 12/31/21 12/31/21 History mg tablet (Percocet) Patient History Medical History Migraine HX Surgical History H/O laparoscopy X 2 History of breast biopsy LEFT-BENIGN History of colonoscopy History of hysterectomy TOTAL Family History Grandmother (Maternal) Family history of diabetes mellitus Social History Smoking Status: Never smoker Second Hand Exposure: No; Do You Dip or Chew Tobacco: No; Tobacco Cessation Education Requested by Patient: No Hx Alcohol Use: Yes Alcohol type: beer Hx Substance Use: No Preferred Language: Luxembourgish Communication Ability: Effective Personal Injury Law Specialist Required: No Beliefs That Will Affect Care: None Current Living Situation: Family current occupational status: employed 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 She is excellent strength testing. Sensory is intact. Results & Data ([facility]) Vital Signs (Past 12 Hours) Vital Signs Temp Pulse Pulse Resp BP Pulse Ox O2 Del Method 01/01/22 07:35 36.6 C 91 H 18 117/74 98 Room Air 12/31/21 21:00 Room Air 12/31/21 21:00 36.6 C 93 H 16 140/84 99 Room Air 12/31/21 21:00 36.6 C 93 H 16 140/84 99 Room Air
[2022-01-01] MEDS: TOPIRAMATE 50 MG TAB PO SCH (09:15)
[2022-01-01] MEDS: DOCUSATE SODIUM/SENNA 50/8.6MG TAB PO SCH (09:15)
[2022-01-01] MEDS: DICLOFENAC SOD 1% GEL 100 GM TUBE EXT SCH ×2 (09:15→13:04)
[2022-01-01] MEDS: LIDOCAINE 5% 1 PATCH TD SCH (09:15)
--- NOTE | 2022-01-01 14:19 | Discharge Summary ---
Date of Service January 01, 2022 Admission HPI Per Admitting Provider History obtained from patient and records. Medical history significant for migraine, anxiety disorder. 3 weeks history of low back pain without radiation to the legs. No leg weakness/bowel/urinary incontinence. No fever, no chills. No recollection of recent trauma. 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 No response to home narcotics, Lidoderm patch trial, steroid course, and outpatient PT Multiple ER visits in the last few weeks for back pain ([facility] and [facility] Outpatient Orthopedics spine evaluation last 12/22/2021. MRI recommended for patient's lumbar pain. Patient confined at [facility] last week for intractable back pain symptoms. Lumbar MRI negative for acute fracture/traumatic subluxation. No evidence of pathologic assessment. Mild disc degenerative changes at L3-4 through L5-S1 levels. Mild foraminal narrowing at the L4-L5 and L5-S1 levels. No disc protrusion or canal stenosis identified. Worsening achy lower abdominal discomfort and constipation symptoms in the last week. Patient claims to taking maximum of 2 tablets of Percocet per day. Some nausea, no emesis. No chest pain, no SOB. No fever, no chills. Last BM was about 5 days ago with an aide of an enema. Patient consulted ER for worsening symptoms. Relistor given at the ER for narcotic induced constipation. Medical History as above Surgical History : Breast biopsy/lumpectomy, cholecystectomy, KAMILA/BSO Family History : Breast cancer, COPD, DM Personal/Social history : Non-smoker, no EtOH intake, hairstylist/[employer] Admission Exam Per Admitting Provider GENERAL: uncomfortable, anxious, no respiratory distress SKIN: Normal color, warm HEENT: Abrams palpebral conjunctivae, no ptosis, dry buccal mucosa NECK : Supple, no tenderness CHEST : CTA, no tenderness HEART : RRR, no obvious murmurs ABDOMEN: distention, right-sided abdominal tenderness BACK : Low back tenderness, negative straight leg raise test EXTREMITIES : No LE swelling/tenderness, no other conspicuous deformities noted NEUROLOGIC : Coherent, no facial asymmetry, no other gross focality Principal Diagnosis Intractable low back pain Opiate induced constipation Mild hyponatremia Discharge Exam GENERAL: Alert and oriented x3. NAD, on RA. HEENT: No pallor, no icterus. Pupils equal, round and reactive to light. Oral mucosa moist. NECK: No JVD, no neck masses. HEART: S1 and S2 heard. Regular rate and rhythm. No murmur, no gallop. RESPIRATORY SYSTEM: Normal AP diameter. No accessory muscle use. No wheezing, no crackles. ABDOMEN: Soft, bowel sounds present, nontender, no distention. CENTRAL NERVOUS SYSTEM: No facial droop. Speech is clear. Obeys simple commands. Moves extremities. EXTREMITIES: No edema, no erythema seen. No vertebral line tenderness. Discharge Data Allergies Allergy/AdvReac Type Severity Reaction Status Date / Time No Known Allergies Allergy Verified 12/19/21 00:47 Consultations 12/31/21 06:19 ED Decision to Admit Stat 12/31/21 06:59 Consult Orthopedic Surgery Routine Ordered Studies 12/31/21 00:30 CT Abd and Pelvis [CT abd pelvis oral and IV con] Urgent Hospital Course (1) Abdominal pain: Plan 56-year-old lady with PMH of migraine and anxiety disorder presented to our ED 12/31 with complaint of 3 weeks history of low back pain without radiation to lower extremity/without bowel or bladder incontinence leading to excess use of narcotic pain meds and multiple ER visits in the last few weeks. Patient denies fever. Last BM was about 5 days ago [employer]. Patient is status post Relistor in the ED. She is being managed for the following: Intractable low back pain Opiate induced constipation Patient presenting with 3 weeks history of low back pain with multiple visits to ED and use of narcotic pain meds/Lidoderm patch/steroid course/outpatient physical therapy without success. Patient complains of not moving bowels for 5 days prior to arrival, had used Fleet enema at home, status post Relistor at ED on presentation. Admitting CTAP with findings suggestive of constipation/fecal retention. Pain control with heat, Voltaren gel, ketorolac, judicious use of narcotics, lidocaine patch. Pt made aware. Continue with bowel regimen scheduled and as needed. Patient reports bowel movement and soft belly, no pain, wants to eat. Can resume diet, pt to incoporate fiberous diet. Orthospine evaluated, pt to follow up w/ orthospine as Outpatient for further management on her low back pain Currently pain under control with meds and heat pad, pt would like to go home, PT evaled, Pt would like to hold off on participating in Out patient PT until after her f/u w/ Dr. Roberto. Mild hyponatremia: Likely secondary to decreased p.o. intake due to constipation/belly pain, expect to improve with improving p.o. intake. Finally pt's belly pain improved so she will be eating better. Pt to get her CMP in 1 week upon discharge. Other chronic medical conditions: Anxiety, migraine --> resume Topamax. As needed hydroxyzine. DVT prophylaxis: SCDs Full code Pt being discharged to home w/ following instructions at the point of discharge: Follow-up with your primary care physician within a week time. For your low back pain, orthospine evaluated you. You will need to follow-up with Dr. Roberto's office as an outpatient for further discussion of your low back pain management. For your low back pain, you can use heat pad, Voltaren gel OTC, Tylenol OTC, lidocaine patch 4% OTC. Use opiates sparingly for very severe pain. Continue to take bowel regimen as needed and on regular basis. Get your blood work CBC and CMP done in a week time and have the results forwarded to your primary care physician. Take your medications as prescribed. Total Time Total Time Spent Total Time Spent (In Minutes): 35 Discharge Plan Discharge Items Patient Disposition: Home - Self-Care Reason For Visit: abd pain, back pain Discharge Diagnosis: Intractable low back pain Opiate induced constipation Mild hyponatremia Activity: Resume your previous activity Non-emergency contact: Primary Care Provider Call non-emergency contact if: you have any medication questions, your symptoms worsen, your pain is not controlled and your temperature is above 101 Follow-up/Referrals: Keyonna Mccurdy DO [Primary Care Provider] - Diet: Heart Healthy Addtl Attending Provider Instructions: Follow-up with your primary care physician within a week time. For your low back pain, orthospine evaluated you. You will need to follow-up with Dr. Roberto's office as an outpatient for further discussion of your low back pain management. For your low back pain, you can use heat pad, Voltaren gel OTC, Tylenol OTC, lidocaine patch 4% OTC. Use opiates sparingly for very severe pain. Continue to take bowel regimen as needed and on regular basis. Get your blood work CBC and CMP done in a week time and have the results forwarded to your primary care physician. Take your medications as prescribed. Pending Studies at Discharge: No Stand-Alone Forms: My [facility], Smoking Cessation Medications and DC Order Prescriptions: New acetaminophen 325 mg Tablet 650 mg PO Q8H PRN (Reason: pain) Qty: 90 0RF diclofenac sodium [Voltaren Arthritis Pain] 1 % Gel 4 g EXT QID Qty: 100 0RF Rx Instructions: For low back pain polyethylene glycol 3350 [Miralax] 17 gram Powder In Packet 17 g PO DAILY PRN (Reason: constipation) Qty: 30 0RF sennosides-docusate sodium [Senokot-S] 8.6-50 mg Tablet 2 tab PO BID Qty: 120 0RF Continued Xiidra 5 % dropperette 1 drp OPB BID cyclobenzaprine 10 mg tablet 10 mg PO HS PRN (Reason: Spasms) Vitamin D3 50 mcg PO DAILY oxycodone-acetaminophen [Percocet] 5-325 mg tablet 1 tab PO ONCE HS PRN (Reason: pain) topiramate 50 mg Tablet 50 mg PO BID Discharge Orders: Discharge Order (Routine); Ordered 01/01/22 Ordered By: Jamaal Mann Admission Data Admit Date/Time: 12/31/21 06:56 Attending Provider: Jamaal Mann Admit Provider: Brayan Garzon Primary Care Provider: Keyonna Mccurdy Other Providers: Ephraim Roberto ; Brayan Garzon
== END 2022-01-01 15:24 | disposition home or self-care (01) ==
LOC: ED 19:37 → EDINP 19:37 → 3W 12-31 21:25